=== PATIENT | female | born 1980 | race Caucasian/White ===

== ENCOUNTER 2018-09-11 05:07 | Inpatient (IN) | payer BC ==
[2018-09-11] MEDS ORDERED: Terbutaline 1 MG/ML SDV SUBCUT PRN (05:33)
[2018-09-11] MEDS ORDERED: Methylergonovine 0.2 MG/1 ML Amp IM PRN (05:33)
[2018-09-11] MEDS ORDERED: Sodium Chloride 0.9% 10 ML SDV IV PRN (05:33)
[2018-09-11] MEDS ORDERED: Carboprost Tromethamine 250 MCG/1 ML Amp IM PRN (05:33)
[2018-09-11] MEDS ORDERED: Tranexamic Acid 1,000 MG in Sodium Chloride 0.9% 100 ML IV PRN (05:33)
[2018-09-11] MEDS ORDERED: Sodium Chloride 0.9% 10 ML Syringe FLUSH PRN (05:33)
[2018-09-11] MEDS ORDERED: Water For Irrigation,Sterile 1,000 ML Container IRR PRN (05:33)
[2018-09-11] MEDS ORDERED: Butorphanol 1 MG/ML SDV IVPUSH PRN (05:33)
[2018-09-11] MEDS ORDERED: Misoprostol 200 MCG Tab PO PRN (05:33)
[2018-09-11] MEDS ORDERED: Lidocaine 1% 50 ML MDV INJECT PRN (05:33)
[2018-09-11] MEDS ORDERED: Nalbuphine 10 MG/1 ML Vial IVPUSH PRN (05:33)
[2018-09-11] MEDS ORDERED: Oxytocin/0.9 % Sodium Chloride 30 UNIT/500 ML BAG IV SCH ×2 (05:45)
[2018-09-11] MEDS: Lactated Ringers 1,000 ML IV SCH ×5 (06:03→22:28)
[2018-09-11] MEDS ORDERED: fentaNYL 100 MCG/2 ML SDV ONE ×2 (11:19→19:47)
[2018-09-11] MEDS ORDERED: Ropivacaine HCl/PF 100 ML ONE (11:20)
--- NOTE | 2018-09-11 13:11 | PCM.PREANE ---
Preanesthetic Assessment - Anesthesia/Transfusion/Family Hx Anesthesia History: Prior Anesthesia Without Reaction Family History of Anesthesia Reaction: No Transfusion History: No Prior Transfusion(s) Intubation History: Unknown - Review of Systems General: No Symptoms Pulmonary: No Symptoms Cardiovascular: No Symptoms Gastrointestinal: Nausea (slight ) Neurological: No Symptoms, Other (pubic symphisis pain) - Physical Assessment NPO Status Date: 09/11/18 NPO Status Time: 08:00 (sips/chips) Height: 5 ft 8 in Weight: 200 lb ASA Class: 1 Airway Class: Mallampati = 2 Dentition: Reports: Normal Dentition Thyro-Mental Finger Breadths: 3 Mouth Opening Finger Breadths: 3 ROM/Head Extension: Full Lungs: Clear to Auscultation, Normal Respiratory Effort Cardiovascular: Regular Rate, Regular Rhythm - Lab Values: Laboratory Last Values WBC 10.27 K/uL (4.0-11.0) 09/11/18 06:00 RBC 4.11 M/uL (4.30-5.90) L 09/11/18 06:00 Hgb 12.3 g/dL (12.0-16.0) 09/11/18 06:00 Hct 36.9 % (36.0-46.0) 09/11/18 06:00 MCV 89.8 fL (80.0-98.0) 09/11/18 06:00 MCH 29.9 pg (27.0-32.0) 09/11/18 06:00 MCHC 33.3 g/dL (31.0-37.0) 09/11/18 06:00 RDW Std Deviation 43.1 fl (28.0-62.0) 09/11/18 06:00 RDW Coeff of Jose 13 % (11.0-15.0) 09/11/18 06:00 Plt Count 275 K/uL (150-400) 09/11/18 06:00 MPV 10.80 fL (7.40-12.00) 09/11/18 06:00 Nucleated RBC % 0.0 /100WBC 09/11/18 06:00 Nucleated RBCs # 0 K/uL 09/11/18 06:00 Blood Type O POSITIVE 09/11/18 06:00 Antibody Screen NEGATIVE 09/11/18 06:00 - Allergies Allergies/Adverse Reactions: Allergies Allergy/AdvReac Type Severity Reaction Status Date / Time sulfadiazine Allergy Respiratory Verified 08/01/15 05:13 Distress - Blood Blood Available: No Product(s) Available: None - Anesthesia Plan Free Text/Narrative:: Labor Epidural - Acknowledgements Anesthesia Type Planned: Epidural Pt an Appropriate Candidate for the Planned Anesthesia: Yes Alternatives and Risks of Anesthesia Discussed w Pt/Guardian: Yes Pt/Guardian Understands and Agrees with Anesthesia Plan: Yes PreAnesthesia Questionnaire - Past Health History Medical/Surgical History: Denies Medical/Surgical History HEENT History: Reports: Other (See Below) Other HEENT History: wear glasses TURNER IN History: Reports: , Spontaneous - Past Surgical History Female Surgical History: Reports: D&C - SUBSTANCE USE Smoking Status *Q: Never Smoker Tobacco Use Within Last Twelve Months: No Second Hand Smoke Exposure: No Recreational Drug Use History: No - HOME MEDS Home Medications: Home Meds oxyCODONE 5 mg PO Q6H PRN #30 tablet 08/02/15 [Rx] [id number]/FA/Omega3/Dha/Fish Oil [ Gummies] 2 each PO DAILY 09/11/18 [ History] - CURRENT (IN HOUSE) MEDS Current Meds: Current Medications Butorphanol Tartrate (Stadol) 1 mg IVPUSH ASDIRECTED PRN PRN Reason: Pain Carboprost Tromethamine (Hemabate Ds) 250 mcg IM ASDIRECTED PRN PRN Reason: Post Hemorrhage Lactated Ringer's (Ringers, Lactated) 1,000 mls @ 150 mls/hr IV ASDIRECTED CONNER Last Admin: 09/11/18 12:06 Dose: 150 mls/hr Oxytocin/Sodium Chloride (Oxytocin 30 Unit/500 Ml-Ns) 30 unit in 500 mls @ 999 mls/hr IV TITRATE CONNER Oxytocin/Sodium Chloride (Oxytocin 30 Unit/500 Ml-Ns) 30 unit in 500 mls @ 2 mls/hr IV TITRATE CONNER; Protocol Last Titration: 09/11/18 12:15 Dose: 16 munits/min, 16 mls/hr Tranexamic Acid 1,000 mg/ (Sodium Chloride) 110 mls @ 660 mls/hr IV ONETIME PRN PRN Reason: Bleeding Lidocaine HCl (Xylocaine 1%) 50 ml INJECT ONETIME PRN PRN Reason: Laceration repair Methylergonovine Maleate (Methergine) 0.2 mg IM ASDIRECTED PRN PRN Reason: Post Hemorrhage Misoprostol (Cytotec) 200 mcg PO ONETIME PRN PRN Reason: Post Hemorrhage Nalbuphine HCl (Nubain) 10 mg IVPUSH ASDIRECTED PRN PRN Reason: Pain (severe 7-10) Sodium Chloride (Saline Flush) 10 ml FLUSH ASDIRECTED PRN PRN Reason: Keep Vein Open Last Admin: 09/11/18 05:55 Dose: 10 ml Sodium Chloride (Normal Saline) 10 ml IV ASDIRECTED PRN PRN Reason: IV Use Sterile Water (Sterile Water For Irrigation) 1,000 ml IRR ASDIRECTED PRN PRN Reason: delivery Terbutaline Sulfate (Brethine) 0.25 mg SUBCUT ASDIRECTED PRN PRN Reason: Tacysystole Discontinued Medications Fentanyl (Sublimaze) Confirm Administered Dose 100 mcg .ROUTE .STK-MED ONE Stop: 09/11/18 11:20 Ropivacaine (Naropin 0.2%) Confirm Administered Dose 100 mls @ as directed .ROUTE .STK-MED ONE Stop: 09/11/18 11:21
[2018-09-11] MEDS ORDERED: Bupivacaine 0.25% 10 ML SDV ONE (19:47)
--- NOTE | 2018-09-11 20:29 | PCM.SN ---
- Free Text/Narrative Note: [id number]: Epidural pump beeping and no longer charging and pt going thru transition. Pt given 5 ml 0.25% Bupiv + 100 mcg Fentanyl as a bolus. Pump changed out to a new pump with same settings as before. VSS. Within 10 minutes pt no longer feeling pain, just pressure.
[2018-09-11] MEDS ORDERED: Ondansetron 4 MG/2 ML SDV ONE (20:56)
--- NOTE | 2018-09-11 22:08 | PCM.OPNOTE ---
- General Post-Op/Procedure Note Date of Surgery/Procedure: 09/11/18 Operative Procedure(s): pitocin induction TSVD, periclitoral suture for hemostasis, manual extraction of placenta. Findings: Liveborn female 8/9 weight pending, right periclitoral laceration with bleeding, suture placed; 1st degree perineal laceration. retained placenta, marginal cord insertion. Pre Op Diagnosis: 39 weeks induction, advanced maternal age Post-Op Diagnosis: Same and retained placenta Primary Surgeon: Feli Rider Anesthesia Provider: Desi Langford Pathology: placenta to pathology EBL in mLs: 200 Complications: None Known Condition: Good
[2018-09-11] MEDS ORDERED: Ibuprofen 400 MG Tab PO PRN (22:09)
[2018-09-11] MEDS ORDERED: Witch Hazel Medicated Pads 40/Jar TOP PRN (22:09)
[2018-09-11] MEDS ORDERED: Lanolin 100% Cream 7 GM Tube TOP PRN (22:09)
[2018-09-11] MEDS ORDERED: Acetaminophen 500 MG Tab PO PRN (22:09)
[2018-09-11] MEDS ORDERED: Ampicillin/Sulbactam Na 3 GM in Sodium Chloride 0.9% 100 ML IV ONE (22:09)
[2018-09-11] MEDS ORDERED: Benzocaine/Menthol 20%-0.5% Spray 78 GM Cannister TOP PRN (22:09)
[2018-09-11] MEDS ORDERED: Bisacodyl 10 MG Supp RECTAL PRN (22:09)
[2018-09-11] MEDS: Ibuprofen 800 MG Tab PO PRN (23:30)
[2018-09-12] MEDS: oxyCODONE 5 MG Tab PO PRN ×6 (01:18→19:36)
[2018-09-12] MEDS: Acetaminophen 500 MG Tab PO PRN ×3 (02:24→19:37)
--- NOTE | 2018-09-12 02:59 | OR ---
SURGEON: Feli Rider M.D. DATE OF PROCEDURE: 09/11/2018 PREOPERATIVE DIAGNOSES: 1. A 38 and 6/7th-week intrauterine . 2. Advanced maternal age. POSTOPERATIVE DIAGNOSES: 1. A 38 and 6/7th-week intrauterine . 2. Advanced maternal age. PROCEDURE: Pitocin induction of labor, term spontaneous vaginal delivery, manual extraction of placenta, repair of periclitoral laceration. ANESTHESIA: Epidural. ESTIMATED BLOOD LOSS: Less than 200 mL. FINDINGS: Liveborn female. scores 8 and 9. The placenta was retained with what appeared to be a marginal cord insertion and it was fundal and anterior with the anterior portion being the retained portion. Periclitoral laceration requiring single suture for hemostasis. First-degree perineal laceration. COMPLICATIONS: None known. DISPOSITION: Stable in LDR. BRIEF HISTORY: This is a 38-year-old female, G3, P2-0-0-2. She presents at 38 and 6/7th weeks' gestation for induction of labor due to advanced maternal age and pelvic pain during . She was initially 1 cm and fairly thick. She was started on Pitocin. She received an epidural for pain control. After approximately 6 hours of Pitocin, she was 2 cm, 30% effaced, -2 station. Artificial rupture of membranes was performed. Clear fluid was noted. She was continued on Pitocin by 5:00 p.m., which was 5 hours later, she was 4 cm dilated. She had category 1 heart tones throughout the entire labor. She progressed to complete by 9:00 p.m. DESCRIPTION OF PROCEDURE: With the patient in dorsal lithotomy position, the patient pushed over 2 contractions to a 5+ station at which time the head was delivered spontaneously and atraumatically over the perineum with support with subsequent delivery of the 's shoulders and body without any difficulty. The infant was bulb suctioned by nose and mouth and after the cord ceased to pulsate, it was doubly clamped and cut. The was handed to the mother in the presence of the nurse attending delivery. This infant is a liveborn female, scores 8 and 9 and weight is pending at the time of dictation. Cord blood was collected for cord ABGs as well as routine cord blood sampling. Pitocin was initiated after delivery of the to assist with delivery of the placenta. After 30 minutes with fundal massage and the Pitocin running, the placenta had not released. Further fundal massage and gentle traction on the cord did not produce the placenta; therefore, I gently began to separate the placenta manually and it was very fragmented and eventually I was able to separate the fundal fragment and the remaining more severely attached portion and one of the anterior portion of the placenta. I was able to perform a very good manual extraction and manual curettage of the uterus and there was no remaining tissue. The uterus became firm with Pitocin and there was minimal bleeding and throughout the whole procedure, the approximate blood loss was 200 mL. There were no known complications. She will be continued on Unasyn for prophylaxis and placenta was sent to Pathology. EMMANUEL / DARIA /[id number]
[2018-09-12] MEDS ORDERED: Ampicillin/Sulbactam Na 1.5 GM in Sodium Chloride 0.9% 50 ML IV SCH (04:00)
[2018-09-12] MEDS: Ibuprofen 800 MG Tab PO PRN ×3 (06:54→23:04)
--- NOTE | 2018-09-12 08:00 | PCM48HPAN ---
Post Anesthesia Note - EVALUATION WITHIN 48HRS OF ANESTHETIC Vital Signs in Normal Range: Yes Patient Participated in Evaluation: Yes Respiratory Function Stable: Yes Airway Patent: Yes Cardiovascular Function Stable: Yes Hydration Status Stable: Yes Pain Control Satisfactory: Yes Nausea and Vomiting Control Satisfactory: Yes Mental Status Recovered: Yes Pulse Rate: 63 SaO2: 97 Resp Rate: 16 Temperature: 36.6 C Blood Pressure: 115/59 - COMMENTS/OBSERVATIONS Free Text/Narrative:: Patient sitting in bed eating. States she got a little behind on pain meds during the night but doing better now. No anesthsia complaints or concerns noted.
--- NOTE | 2018-09-12 08:52 | PCM.PNPP ---
- General Info Date of Service: 09/12/18 Admission Dx/Problem (Free Text): 38yo P3 s/p PPD3 , has slight abdominal discomfort. she is ambulating and tolerating regular diet Functional Status: Reports: Pain Controlled, Tolerating Diet, Ambulating, Urinating - Review of Systems General: Reports: No Symptoms HEENT: Reports: No Symptoms Pulmonary: Reports: No Symptoms Cardiovascular: Reports: No Symptoms Gastrointestinal: Reports: No Symptoms Genitourinary: Reports: No Symptoms Musculoskeletal: Reports: No Symptoms Skin: Reports: No Symptoms Neurological: Reports: No Symptoms Psychiatric: Reports: No Symptoms - General Info Date of Service: 09/12/18 - Patient Data Vital Signs - Most Recent: Last Vital Signs Temp 36.6 C 09/12/18 08:00 Pulse 63 09/12/18 08:00 Resp 16 09/12/18 08:00 BP 115/59 L 09/12/18 08:00 Pulse Ox 97 09/12/18 08:00 Weight - Most Recent: 90.718 kg Lab Results - Last 24 Hours: Laboratory Results - last 24 hr 09/11/18 09/12/18 Range/Units 21:13 05:49 Hgb 10.7 L (12.0-16.0) g/dL Hct 32.5 L (36.0-46.0) % Cord ABG pH 7.275 (7.18-7.38) Cord ABG Base Excess -6 (-10--2) Cord VBG pH 7.337 (7.25-7.45) Cord VBG Base Excess -6 (-10--2) Med Orders - Current: Current Medications Acetaminophen (Tylenol Extra Strength) 500 mg PO Q4H PRN PRN Reason: Pain Acetaminophen (Tylenol Extra Strength) 1,000 mg PO Q4H PRN PRN Reason: Pain Last Admin: 09/12/18 02:24 Dose: 1,000 mg Benzocaine/Menthol (Dermoplast Pain Relief 20%-0.5% [place]) 78 gm TOP ASDIRECTED PRN PRN Reason: Perineal Comfort Measure Last Admin: 09/11/18 23:35 Dose: 1 can Bisacodyl (Dulcolax) 10 mg RECTAL ONETIME PRN PRN Reason: Constipation Docusate Sodium (Colace) 100 mg PO BID PRN PRN Reason: Constipation Emollient Ointment (Lansinoh Hpa) 0 gm TOP ASDIRECTED PRN PRN Reason: Sore Nipples Ampicillin Sodium/Sulbactam (Sodium 1.5 gm/ Sodium Chloride) 50 mls @ 150 mls/ hr IV Q6H CONNER Ibuprofen (Motrin) 400 mg PO Q4H PRN PRN Reason: Pain Ibuprofen (Motrin) 800 mg PO Q6H PRN PRN Reason: Pain Last Admin: 09/12/18 06:54 Dose: 800 mg Oxycodone HCl (Oxycodone) 5 mg PO Q2H PRN PRN Reason: Pain Last Admin: 09/12/18 08:43 Dose: 5 mg Witch Robyn (Tucks) 1 pad TOP ASDIRECTED PRN PRN Reason: comfort care Discontinued Medications Bupivacaine HCl (Sensorcaine-Mpf 0.25%) Confirm Administered Dose 10 ml .ROUTE .STK-MED ONE Stop: 09/11/18 19:48 Last Admin: 09/12/18 00:47 Dose: Not Given Butorphanol Tartrate (Stadol) 1 mg IVPUSH ASDIRECTED PRN PRN Reason: Pain Carboprost Tromethamine (Hemabate Ds) 250 mcg IM ASDIRECTED PRN PRN Reason: Post Hemorrhage Fentanyl (Sublimaze) Confirm Administered Dose 100 mcg .ROUTE .STK-MED ONE Stop: 09/11/18 11:20 Last Admin: 09/12/18 00:46 Dose: Not Given Fentanyl (Sublimaze) Confirm Administered Dose 100 mcg .ROUTE .STK-MED ONE Stop: 09/11/18 19:48 Last Admin: 09/12/18 00:47 Dose: Not Given Lactated Ringer's (Ringers, Lactated) 1,000 mls @ 150 mls/hr IV ASDIRECTED CONNER Last Admin: 09/11/18 22:28 Dose: 75 mls/hr Oxytocin/Sodium Chloride (Oxytocin 30 Unit/500 Ml-Ns) 30 unit in 500 mls @ 999 mls/hr IV TITRATE CONNER Last Admin: 09/11/18 21:34 Dose: 999 mls/hr Oxytocin/Sodium Chloride (Oxytocin 30 Unit/500 Ml-Ns) 30 unit in 500 mls @ 2 mls/hr IV TITRATE CONNER; Protocol Last Titration: 09/11/18 14:15 Dose: 18 munits/min, 18 mls/hr Tranexamic Acid 1,000 mg/ (Sodium Chloride) 110 mls @ 660 mls/hr IV ONETIME PRN PRN Reason: Bleeding Ropivacaine (Naropin 0.2%) Confirm Administered Dose 100 mls @ as directed .ROUTE .Cerephex ONE Stop: 09/11/18 11:21 Last Admin: 09/12/18 00:46 Dose: Not Given Ampicillin Sodium/Sulbactam (Sodium 3 gm/ Sodium Chloride) 100 mls @ 200 mls/ hr IV ONETIME ONE Stop: 09/11/18 22:38 Last Admin: 09/11/18 22:26 Dose: 200 mls/hr Ampicillin Sodium/Sulbactam (Sodium 1.5 gm/ Sodium Chloride) 50 mls @ 150 mls/ hr IV Q6H CONNER Stop: 09/12/18 04:01 Last Admin: 09/12/18 04:04 Dose: 150 mls/hr Lidocaine HCl (Xylocaine 1%) 50 ml INJECT ONETIME PRN PRN Reason: Laceration repair Methylergonovine Maleate (Methergine) 0.2 mg IM ASDIRECTED PRN PRN Reason: Post Hemorrhage Misoprostol (Cytotec) 200 mcg PO ONETIME PRN PRN Reason: Post Hemorrhage Nalbuphine HCl (Nubain) 10 mg IVPUSH ASDIRECTED PRN PRN Reason: Pain (severe 7-10) Ondansetron HCl (Zofran) Confirm Administered Dose 4 mg .ROUTE .Cerephex ONE Stop: 09/11/18 20:57 Sodium Chloride (Saline Flush) 10 ml FLUSH ASDIRECTED PRN PRN Reason: Keep Vein Open Last Admin: 09/11/18 05:55 Dose: 10 ml Sodium Chloride (Normal Saline) 10 ml IV ASDIRECTED PRN PRN Reason: IV Use Sterile Water (Sterile Water For Irrigation) 1,000 ml IRR ASDIRECTED PRN PRN Reason: delivery Terbutaline Sulfate (Brethine) 0.25 mg SUBCUT ASDIRECTED PRN PRN Reason: Tacysystole - Interaction Support Person: - Recovery Exam Fundal Tone: Firm Fundal Level: 1 Fingerbreadths Below Umbilicus Fundal Placement: Midline Lochia Amount: Scant Lochia Color: Rubra/Red Perineum Description: Intact, Minimal Bruising/Swelling Episiotomy/Laceration: Not Approximated Bladder Status: Voiding Urinary Elimination: Voided - Exam General: Alert, Oriented HEENT: Pupils Equal Neck: Supple Lungs: Clear to Auscultation Cardiovascular: Regular Rate, Regular Rhythm Extremities: Normal Inspection Psy/Mental Status: Alert - Problem List & Annotations (1) Vaginal delivery SNOMED Code(s): 779547332 Code(s): O80 - ENCOUNTER FOR FULL-TERM UNCOMPLICATED DELIVERY Status: Acute Current Visit: No - Problem List Review Problem List Initiated/Reviewed/Updated: Yes - Assessment Assessment:: 38 yo P3 s/p with Manual removal of placenta on antibiotics for 24hrs , normal lochia , stable - Plan Plan:: Stable , consider discharge home today
[2018-09-12] MEDS: Ampicillin/Sulbactam Na 1.5 GM in Sodium Chloride 0.9% 50 ML IV SCH ×3 (09:57→22:09)
[2018-09-12] MEDS: Docusate Sodium 100 MG Cap PO PRN (16:08)
[2018-09-13] MEDS: oxyCODONE 5 MG Tab PO PRN ×2 (03:04→09:04)
[2018-09-13 05:04] VITALS: BP 105/52
[2018-09-13] MEDS: Ampicillin/Sulbactam Na 1.5 GM in Sodium Chloride 0.9% 50 ML IV SCH (07:13)
--- NOTE | 2018-09-13 07:31 | PCM.PNPP ---
- General Info Date of Service: 09/13/18 Admission Dx/Problem (Free Text): 38yo P3 s/p PPD2 , has slight abdominal discomfort. she is ambulating and tolerating regular diet Functional Status: Reports: Pain Controlled, Tolerating Diet, Ambulating, Urinating - Review of Systems General: Reports: No Symptoms HEENT: Reports: No Symptoms Pulmonary: Reports: No Symptoms Cardiovascular: Reports: No Symptoms Gastrointestinal: Reports: No Symptoms Genitourinary: Reports: No Symptoms Musculoskeletal: Reports: No Symptoms Skin: Reports: No Symptoms Neurological: Reports: No Symptoms Psychiatric: Reports: No Symptoms - General Info Date of Service: 09/13/18 - Patient Data Vital Signs - Most Recent: Last Vital Signs Temp 37.0 C 09/13/18 05:00 Pulse 67 09/13/18 05:00 Resp 16 09/13/18 05:00 BP 105/52 L 09/13/18 05:00 Pulse Ox 97 09/13/18 05:00 Weight - Most Recent: 90.718 kg Med Orders - Current: Current Medications Acetaminophen (Tylenol Extra Strength) 500 mg PO Q4H PRN PRN Reason: Pain Last Admin: 09/13/18 03:05 Dose: 500 mg Acetaminophen (Tylenol Extra Strength) 1,000 mg PO Q4H PRN PRN Reason: Pain Last Admin: 09/12/18 19:37 Dose: 1,000 mg Benzocaine/Menthol (Dermoplast Pain Relief 20%-0.5% [place]) 78 gm TOP ASDIRECTED PRN PRN Reason: Perineal Comfort Measure Last Admin: 09/11/18 23:35 Dose: 1 can Bisacodyl (Dulcolax) 10 mg RECTAL ONETIME PRN PRN Reason: Constipation Docusate Sodium (Colace) 100 mg PO BID PRN PRN Reason: Constipation Last Admin: 09/12/18 16:08 Dose: 100 mg Emollient Ointment (Lansinoh Hpa) 0 gm TOP ASDIRECTED PRN PRN Reason: Sore Nipples Ampicillin Sodium/Sulbactam (Sodium 1.5 gm/ Sodium Chloride) 50 mls @ 150 mls/ hr IV Q6H CONNER Last Admin: 09/13/18 07:13 Dose: Not Given Ibuprofen (Motrin) 400 mg PO Q4H PRN PRN Reason: Pain Ibuprofen (Motrin) 800 mg PO Q6H PRN PRN Reason: Pain Last Admin: 09/12/18 23:04 Dose: 800 mg Oxycodone HCl (Oxycodone) 5 mg PO Q2H PRN PRN Reason: Pain Last Admin: 09/13/18 03:04 Dose: 5 mg Witch Robyn (Tucks) 1 pad TOP ASDIRECTED PRN PRN Reason: comfort care Discontinued Medications Bupivacaine HCl (Sensorcaine-Mpf 0.25%) Confirm Administered Dose 10 ml .ROUTE .STK-MED ONE Stop: 09/11/18 19:48 Last Admin: 09/12/18 00:47 Dose: Not Given Butorphanol Tartrate (Stadol) 1 mg IVPUSH ASDIRECTED PRN PRN Reason: Pain Carboprost Tromethamine (Hemabate Ds) 250 mcg IM ASDIRECTED PRN PRN Reason: Post Hemorrhage Fentanyl (Sublimaze) Confirm Administered Dose 100 mcg .ROUTE .STJobzella-MED ONE Stop: 09/11/18 11:20 Last Admin: 09/12/18 00:46 Dose: Not Given Fentanyl (Sublimaze) Confirm Administered Dose 100 mcg .ROUTE .STK-MED ONE Stop: 09/11/18 19:48 Last Admin: 09/12/18 00:47 Dose: Not Given Lactated Ringer's (Ringers, Lactated) 1,000 mls @ 150 mls/hr IV ASDIRECTED CONNER Last Admin: 09/11/18 22:28 Dose: 75 mls/hr Oxytocin/Sodium Chloride (Oxytocin 30 Unit/500 Ml-Ns) 30 unit in 500 mls @ 999 mls/hr IV TITRATE CONNER Last Admin: 09/11/18 21:34 Dose: 999 mls/hr Oxytocin/Sodium Chloride (Oxytocin 30 Unit/500 Ml-Ns) 30 unit in 500 mls @ 2 mls/hr IV TITRATE CONNER; Protocol Last Titration: 09/11/18 14:15 Dose: 18 munits/min, 18 mls/hr Tranexamic Acid 1,000 mg/ (Sodium Chloride) 110 mls @ 660 mls/hr IV ONETIME PRN PRN Reason: Bleeding Ropivacaine (Naropin 0.2%) Confirm Administered Dose 100 mls @ as directed .ROUTE .STK-MED ONE Stop: 09/11/18 11:21 Last Admin: 09/12/18 00:46 Dose: Not Given Ampicillin Sodium/Sulbactam (Sodium 3 gm/ Sodium Chloride) 100 mls @ 200 mls/ hr IV ONETIME ONE Stop: 09/11/18 22:38 Last Admin: 09/11/18 22:26 Dose: 200 mls/hr Ampicillin Sodium/Sulbactam (Sodium 1.5 gm/ Sodium Chloride) 50 mls @ 150 mls/ hr IV Q6H CONNER Stop: 09/12/18 04:01 Last Admin: 09/12/18 04:04 Dose: 150 mls/hr Lidocaine HCl (Xylocaine 1%) 50 ml INJECT ONETIME PRN PRN Reason: Laceration repair Methylergonovine Maleate (Methergine) 0.2 mg IM ASDIRECTED PRN PRN Reason: Post Hemorrhage Misoprostol (Cytotec) 200 mcg PO ONETIME PRN PRN Reason: Post Hemorrhage Nalbuphine HCl (Nubain) 10 mg IVPUSH ASDIRECTED PRN PRN Reason: Pain (severe 7-10) Ondansetron HCl (Zofran) Confirm Administered Dose 4 mg .ROUTE .STK-MED ONE Stop: 09/11/18 20:57 Last Admin: 09/12/18 17:09 Dose: Not Given Sodium Chloride (Saline Flush) 10 ml FLUSH ASDIRECTED PRN PRN Reason: Keep Vein Open Last Admin: 09/11/18 05:55 Dose: 10 ml Sodium Chloride (Normal Saline) 10 ml IV ASDIRECTED PRN PRN Reason: IV Use Sterile Water (Sterile Water For Irrigation) 1,000 ml IRR ASDIRECTED PRN PRN Reason: delivery Terbutaline Sulfate (Brethine) 0.25 mg SUBCUT ASDIRECTED PRN PRN Reason: Tacysystole - Interaction Support Person: - Recovery Exam Fundal Tone: Firm Fundal Level: 1 Fingerbreadths Below Umbilicus Fundal Placement: Midline Lochia Amount: Scant Lochia Color: Rubra/Red Perineum Description: Other (see below) Other Perinuem Description: 1st degree Episiotomy/Laceration: Approximated Bladder Status: Voiding Urinary Elimination: Voided - Exam General: Alert, Oriented HEENT: Pupils Equal, Pupils Reactive Neck: Supple Lungs: Clear to Auscultation Cardiovascular: Regular Rate, Regular Rhythm GI/Abdominal Exam: Normal Bowel Sounds Extremities: Normal Inspection Neurological: No New Focal Deficit Psy/Mental Status: Alert - Problem List & Annotations (1) Vaginal delivery SNOMED Code(s): 654157542 Code(s): O80 - ENCOUNTER FOR FULL-TERM UNCOMPLICATED DELIVERY Status: Acute Current Visit: No - Problem List Review Problem List Initiated/Reviewed/Updated: Yes - Assessment Assessment:: 38 yo P3 s/p PP2 with Manual removal of placenta s/p antibiotics for 24hrs , normal lochia , stable - Plan Plan:: discharge home today
[2018-09-13] MEDS: Docusate Sodium 100 MG Cap PO PRN (09:04)
[2018-09-13] MEDS: Ibuprofen 800 MG Tab PO PRN (09:04)
== END 2018-09-13 09:25 | disposition home or self-care (01) | DRG 560 ==
LOC: MW.OBCHECK 05:07 → MW.OB 05:09 → MW.OBCHECK 05:33 → OBSVTOIN 21:13 → MW.OB 09-12
PROVIDERS: ADMIT Obstetrics & Gynecology; ATTEND Obstetrics & Gynecology
PROC: 10E0XZZ Delivery of Products of Conception, External Approach (ICD-10-PCS; principal; 2018-09-11)
PROC: 10907ZC Drainage of Amniotic Fluid, Therapeutic from Products of Conception, Via Natural or Artificial Opening (ICD-10-PCS; 2018-09-11)
PROC: 3E033VJ Introduction of Other Hormone into Peripheral Vein, Percutaneous Approach (ICD-10-PCS; 2018-09-11)
PROC: 0HQ9XZZ Repair Perineum Skin, External Approach (ICD-10-PCS; 2018-09-11)
PROC: 4A1HXCZ Monitoring of Products of Conception, Cardiac Rate, External Approach (ICD-10-PCS; 2018-09-11)
DX: O70.0 First degree perineal laceration during delivery (principal); Z3A.39 39 weeks gestation of pregnancy; Z37.0 Single live birth
CPT/HCPCS: 36415; 51702; 59025; 59409; 82803; 85014; 85018; 85027; 86850; 86900; 86901; A9270-GY; J0295; J2405; J2590; J2795; J3010; J3490; J7030; J7050; J7120